=== PATIENT | female | born 1960 | race Hispanic/Latino ===

== ENCOUNTER 2021-08-19 12:35 | Observation (INO) | payer MEDICARE ==
[2021-08-19] MEDS ORDERED: ALBUTEROL 2.5 MG/3 ML NEBU IH ONE ×2 (14:06→22:39)
--- NOTE | 2021-08-19 14:09 | Event Note ---
ED Screening Note ED Screening Note: 60 y/o female with PMH of COPD c/o 5-6 day history of worsening sob and cough and now has stabbing pain radiating across her chest and exertional dyspnea. Feels the same it has when she had pneumonia. PCP gave her an order for outpatient CXR on 08/16/2021 which presents to ED today for evaluation. This initial assessment/diagnostic orders/clinical plan/treatment(s) is/are subject to change based on patients health status, clinical progression and re- assessment by fellow clinical providers in the ED. Further treatment and workup at subsequent clinical providers discretion. Patient/guardian urged not to elope from the ED as their condition may be serious if not clinically assessed and managed. Initial orders include: labs cxr treatment
--- NOTE | 2021-08-19 19:17 | XRay Report ---
CHEST 2 VIEWS INDICATION / CLINICAL INFORMATION: Dyspnea. COMPARISON: None available. FINDINGS: SUPPORT DEVICES: None. HEART / MEDIASTINUM: No significant abnormality. LUNGS / PLEURA: No significant pulmonary or pleural abnormality. No pneumothorax. ADDITIONAL FINDINGS: No significant additional findings. IMPRESSION: 1. No acute findings. Signer Name: Hugo Sage DO Signed: 08/19/2021 7:13 PM Workstation Name: [id number]
[2021-08-19 19:25] LABS: Basophils # (Auto) 0.2 K/mm3 (0.0-0.1); Basophils % (Auto) 1.3 % (0.0-1.8); Eosinophils # (Auto) 0.4 K/mm3 (0.0-0.4); Eosinophils % (Auto) 3.5 % (0.0-4.3); Hematocrit 43.3 % (30.3-42.9); Hemoglobin 14.6 gm/dl (10.1-14.3); Lymphocytes # (Auto) 3.5 K/mm3 (1.2-5.4); Mean Corpuscular HGB Conc 34 % (30-34); Mean Corpuscular Volume 92 fl (79-97); Monocytes % (Auto) 7.9 % (0.0-7.3); Platelet Count 362 K/mm3 (140-440); Red Cell Distribution Width 14.3 % (13.2-15.2)
[2021-08-19 19:48] LABS: Alanine Aminotransferase 19 units/L (7-56); Blood Urea Nitrogen 12 mg/dL (7-17); Calcium 10.3 mg/dL (8.4-10.2); Hemolysis Index 8
[2021-08-19 19:51] LABS: BUN/Creatinine Ratio 20
[2021-08-19] MEDS ORDERED: ONDANSETRON 4 MG/2 ML INJ IV ONE (22:39)
[2021-08-19] MEDS ORDERED: IPRATROPIUM 0.02% NEBU 2.5 ML IH ONE (22:39)
[2021-08-19] MEDS ORDERED: fentaNYL 100 MCG/2 ML INJ IV ONE (22:39)
--- NOTE | 2021-08-19 22:43 | Emergency Department Report ---
HPI - General Chief Complaint: Dyspnea/Respdistress Time Seen by Provider: 08/19/21 22:31 - HPI HPI: Room 40 The patient is a 60-year-old female present with a chief complaint of shortness of breath. Patient states she has a history of COPD and is not on home O2. Patient states over the past 2 months she has had shortness of breath pretty much every day. The patient states that shortness of breath worsened over the past few days and she developed stabbing pleuritic pain in her left upper back. Patient states her cough recently became productive of green sputum. Patient denies history of fever nausea or vomiting. Patient states she has not been vaccinated against COVID. Patient currently gives her pain a score of 10/10 ED Past Medical Hx - Past Medical History Hx COPD: Yes (No home O2) - Surgical History Past Surgical History?: No - Family History Family history: no significant - Social History Smoking Status: Current Every Day Smoker (1/2 pack/day) Substance Use Type: None (Denies illicit drug use) ED Review of Systems ROS: Stated complaint: TROUBLE BREATHING Other details as noted in HPI Constitutional: denies: fever Eyes: denies: eye pain ENT: denies: throat pain Respiratory: cough, shortness of breath Cardiovascular: denies: chest pain Endocrine: no symptoms reported Gastrointestinal: denies: nausea, vomiting Genitourinary: denies: dysuria Musculoskeletal: back pain Neurological: denies: headache Physical Exam - Physical Exam Vital Signs: Vital Signs 08/19/21 08/19/21 12:41 14:22 Temperature 98.5 F Pulse Rate 106 H Pulse Rate [ 108 H Anterior Bilateral Throughout] Respiratory 20 Rate Respiratory 20 Rate [Anterior Bilateral Throughout] Blood Pressure 170/91 O2 Sat by Pulse 93 Oximetry Physical Exam: GENERAL: The patient is well-developed well-nourished female lying on stretcher exhibiting increased work of breathing. [] HEENT: Normocephalic. Atraumatic. Extraocular motions are intact. Patient has moist mucous membranes. NECK: Supple. Trachea midline CHEST/LUNGS: Diminished throughout. Increased work of breathing. Accessory muscle use HEART/CARDIOVASCULAR: Regular. There is tachycardia. There is no gallop rub or murmur. ABDOMEN: Abdomen is soft, nontender. Patient has normal bowel sounds. There is no abdominal distention. SKIN: There is no rash. There is no diaphoresis. NEURO: The patient is awake, alert, and oriented. The patient is cooperative. The patient has no focal neurologic deficits. The patient has normal speech. GCS 15 MUSCULOSKELETAL:There is no evidence of acute injury. ED Course Vital Signs 08/19/21 08/19/21 12:41 14:22 Temperature 98.5 F Pulse Rate 106 H Pulse Rate [ 108 H Anterior Bilateral Throughout] Respiratory 20 Rate Respiratory 20 Rate [Anterior Bilateral Throughout] Blood Pressure 170/91 O2 Sat by Pulse 93 Oximetry ED Medical Decision Making - Lab Data Result diagrams: 08/19/21 19:10 08/19/21 22:48 Laboratory Tests 08/19/21 08/19/21 08/19/21 19:10 19:10 22:48 WBC 12.6 H RBC 4.70 Hgb 14.6 H Hct 43.3 H MCV 92 MCH 31 MCHC 34 RDW 14.3 Plt Count 362 Lymph % (Auto) 28.0 [place] % (Auto) 7.9 H Eos % (Auto) 3.5 Baso % (Auto) 1.3 Lymph # (Auto) 3.5 [place] # (Auto) 1.0 H Eos # (Auto) 0.4 Baso # (Auto) 0.2 H Seg Neutrophils % 59.3 Seg Neutrophils # 7.5 D-Dimer 205.70 Sodium 132 L Potassium 5.4 H Chloride 94.9 L Carbon Dioxide 27 Anion Gap 16 BUN 12 Creatinine 0.6 Estimated GFR > 60 BUN/Creatinine Ratio 20 Glucose 97 Calcium 10.3 H Total Bilirubin 0.30 AST 34 ALT 19 Alkaline Phosphatase 107 Troponin T < 0.010 Total Protein 7.7 Albumin 4.0 Albumin/Globulin Ratio 1.1 08/19/21 22:48 WBC RBC Hgb Hct MCV MCH MCHC RDW Plt Count Lymph % (Auto) [place] % (Auto) Eos % (Auto) Baso % (Auto) Lymph # (Auto) [place] # (Auto) Eos # (Auto) Baso # (Auto) Seg Neutrophils % Seg Neutrophils # D-Dimer Sodium Potassium 5.7 H Chloride Carbon Dioxide Anion Gap BUN Creatinine Estimated GFR BUN/Creatinine Ratio Glucose Calcium Total Bilirubin AST ALT Alkaline Phosphatase Troponin T Total Protein Albumin Albumin/Globulin Ratio Discussed with lab there is no hemolysis response for the potassium results - Radiology Data Radiology results: report reviewed (Chest x-ray), image reviewed (Chest x-ray) interpreted by me: Chest x-ray-no definite focal infiltrates, no pneumothorax [facility] [address] [place] [address] XRay Report Signed Patient: AMBER CHENG MR#: [id number] : 1960 Acct:[id number] Age/Sex: 60 / F ADM Date: 08/19/21 Loc: ED Attending Dr: Ordering Physician: GAIL FRIEND Date of Service: 08/19/21 Procedure(s): XR chest routine 2V Accession Number(s): [id number] cc: GAIL FRIEND Fluoro Time In Minutes: CHEST 2 VIEWS INDICATION / CLINICAL INFORMATION: Dyspnea. COMPARISON: None available. FINDINGS: SUPPORT DEVICES: None. HEART / MEDIASTINUM: No significant abnormality. LUNGS / PLEURA: No significant pulmonary or pleural abnormality. No pneumothorax. ADDITIONAL FINDINGS: No significant additional findings. IMPRESSION: 1. No acute findings. Signer Name: Hugo Briscoe DO Signed: 08/19/2021 7:13 PM Workstation Name: [id number] Transcribed By: DM Dictated By: HUGO BRISCOE DO Electronically Authenticated By: HUGO BRISCOE DO Signed Date/Time: 08/19/211912 DD/ 11 TD/TT: Print Cancel - Differential Diagnosis Pneumonia, COPD exacerbation, PE Critical care attestation.: If time is entered above; I have spent that time in minutes in the direct care of this critically ill patient, excluding procedure time. ED Disposition Clinical Impression: COPD exacerbation, Hyperkalemia Disposition: ADMITTED INPATIENT Is pt being admited?: Yes Does the pt Need Aspirin: No Condition: Fair Instructions: Chronic Obstructive Pulmonary Disease (ED) Time of Disposition: 23:51 (Care transferred to hospitalist (Dr. Anderson))
[2021-08-19] MEDS ORDERED: methylPREDNISolone Sod Succinate 125 MG/2 ML INJ IV ONE (23:37)
[2021-08-19] MEDS ORDERED: SODIUM POLYSTYRENE 15 GM/60 ML ORAL LIQD PO ONE (23:45)
[2021-08-20] MEDS ORDERED: ONDANSETRON 4 MG/2 ML INJ IV PRN (01:36)
[2021-08-20] MEDS ORDERED: MORPHINE 2 MG/1 ML INJ IV PRN (01:36)
[2021-08-20] MEDS ORDERED: ALBUTEROL 2.5 MG/3 ML NEBU IH PRN (01:36)
[2021-08-20] MEDS ORDERED: ACETAMINOPHEN 325 MG TAB PO PRN (01:36)
[2021-08-20] MEDS ORDERED: SODIUM POLYSTYRENE 15 GM/60 ML ORAL LIQD PO ONE ×2 (01:40→09:31)
--- NOTE | 2021-08-20 01:45 | History and Physical Report ---
History of Present Illness Date of examination: 08/20/21 Date of admission: 08/20/21 Chief complaint: Shortness of breath History of present illness: 60-year-old female present with history of COPD and is not on home O2 was brought to the emergency room because of progressive shortness of breath. Patient states over the past 2 months she has had shortness of breath pretty much every day. The patient states that shortness of breath worsened over the past few days and she developed stabbing pleuritic pain in her left upper back. Patient states her cough recently became productive of green sputum. Patient denies history of fever nausea or vomiting. Patient states she has not been vaccinated against COVID. Patient currently gives her pain a score of 10/10 In the emergency room patient is found to have acute COPD exacerbation. Also patient potassium is 5.4.'s were going to admit the patient we will put the patient on neb treatment and steroid and Kayexalate Past History Past Medical History: COPD Past Surgical History: No surgical history Social history: smoking Medications and Allergies Allergies Allergy/AdvReac Type Severity Reaction Status Date / Time No Known Allergies Allergy Unverified 08/19/21 12:45 Active Meds: Active Medications Acetaminophen (Acetaminophen 325 Mg Tab) 650 mg PO Q4H PRN PRN Reason: Pain MILD(1-3)/Fever >100.5/DELACRUZ Albuterol (Albuterol 2.5 Mg/3 Ml Nebu) 2.5 mg IH Q3HRT PRN PRN Reason: Shortness Of Breath Albuterol/Ipratropium (Ipratropium/Albuterol Sulfate 3 Ml Ampul.Neb) 1 ampul IH Q6HRT LALO Famotidine (Famotidine 20 Mg Tab) 20 mg PO BID LALO Heparin Sodium (Porcine) (Heparin 5,000 Unit/1 Ml Vial) 5,000 unit SUB-Q Q12HR LALO Calcium Gluconate 1,000 mg/ (Sodium Chloride) 110 mls @ 660 mls/hr IV ONCE ONE Stop: 08/20/21 01:48 Morphine Sulfate (Morphine 2 Mg/1 Ml Inj) 2 mg IV Q4H PRN PRN Reason: Pain, Moderate (4-6) Morphine Sulfate (Morphine 4 Mg/1 Ml Inj) 4 mg IV Q4H PRN PRN Reason: Pain , Severe (7-10) Ondansetron HCl (Ondansetron 4 Mg/2 Ml Inj) 4 mg IV Q8H PRN PRN Reason: Nausea And Vomiting Sodium Chloride (Sodium Chloride 0.9% 10 Ml Flush Syringe) 10 ml IV BID LALO Sodium Chloride (Sodium Chloride 0.9% 10 Ml Flush Syringe) 10 ml IV PRN PRN PRN Reason: LINE FLUSH Sodium Polystyrene Sulfonate (Sodium Polystyrene 15 Gm/60 Ml Oral Liqd) 60 gm PO ONCE ONE Stop: 08/20/21 01:41 Review of Systems All systems: negative Cardiovascular: chest pain, shortness of breath, dyspnea on exertion Respiratory: cough, shortness of breath, dyspnea on exertion Exam - Constitutional Vitals: Temp Pulse Resp BP Pulse Ox 98.5 F 97 H 32 H 133/59 93 08/19/21 12:41 08/19/21 23:30 08/19/21 23:30 08/19/21 23:30 08/19/21 12:41 General appearance: Present: no acute distress, well-nourished - EENT Eyes: Present: PERRL ENT: hearing intact, clear oral mucosa - Neck Neck: Present: supple, normal ROM - Respiratory Respiratory effort: normal Respiratory: bilateral: diminished - Cardiovascular Heart Sounds: Present: S1 & S2. Absent: rub, click - Extremities Extremities: pulses symmetrical, No edema Peripheral Pulses: within normal limits - Abdominal General gastrointestinal: Present: soft, non-tender, non-distended, normal bowel sounds Female genitourinary: Present: normal - Integumentary Integumentary: Present: clear, warm, dry - Musculoskeletal Musculoskeletal: gait normal, strength equal bilaterally - Psychiatric Psychiatric: appropriate mood/affect, intact judgment & insight - Neurologic Neurologic: CNII-XII intact, moves all extremities HEART Score - HEART Score Troponin: Troponin T < 0.010 ng/mL (0.00-0.029) 08/19/21 19:10 Results - Labs CBC & Chem 7: 08/19/21 19:10 08/19/21 22:48 Labs: Laboratory Last Values WBC 12.6 K/mm3 (4.5-11.0) H 08/19/21 19:10 RBC 4.70 M/mm3 (3.65-5.03) 08/19/21 19:10 Hgb 14.6 gm/dl (10.1-14.3) H 08/19/21 19:10 Hct 43.3 % (30.3-42.9) H 08/19/21 19:10 MCV 92 fl (79-97) 08/19/21 19:10 MCH 31 pg (28-32) 08/19/21 19:10 MCHC 34 % (30-34) 08/19/21 19:10 RDW 14.3 % (13.2-15.2) 08/19/21 19:10 Plt Count 362 K/mm3 (140-440) 08/19/21 19:10 Lymph % (Auto) 28.0 % (13.4-35.0) 08/19/21 19:10 [place] % (Auto) 7.9 % (0.0-7.3) H 08/19/21 19:10 Eos % (Auto) 3.5 % (0.0-4.3) 08/19/21 19:10 Baso % (Auto) 1.3 % (0.0-1.8) 08/19/21 19:10 Lymph # (Auto) 3.5 K/mm3 (1.2-5.4) 08/19/21 19:10 [place] # (Auto) 1.0 K/mm3 (0.0-0.8) H 08/19/21 19:10 Eos # (Auto) 0.4 K/mm3 (0.0-0.4) 08/19/21 19:10 Baso # (Auto) 0.2 K/mm3 (0.0-0.1) H 08/19/21 19:10 Seg Neutrophils % 59.3 % (40.0-70.0) 08/19/21 19:10 Seg Neutrophils # 7.5 K/mm3 (1.8-7.7) 08/19/21 19:10 D-Dimer 205.70 ng/mlDDU (0-234) 08/19/21 22:48 Sodium 132 mmol/L (137-145) L 08/19/21 19:10 Potassium 5.7 mmol/L (3.6-5.0) H 08/19/21 22:48 Chloride 94.9 mmol/L (98-107) L 08/19/21 19:10 Carbon Dioxide 27 mmol/L (22-30) 08/19/21 19:10 Anion Gap 16 mmol/L 08/19/21 19:10 BUN 12 mg/dL (7-17) 08/19/21 19:10 Creatinine 0.6 mg/dL (0.6-1.2) 08/19/21 19:10 Estimated GFR > 60 ml/min 08/19/21 19:10 BUN/Creatinine Ratio 20 % 08/19/21 19:10 Glucose 97 mg/dL (65-100) 08/19/21 19:10 Calcium 10.3 mg/dL (8.4-10.2) H 08/19/21 19:10 Total Bilirubin 0.30 mg/dL (0.1-1.2) 08/19/21 19:10 AST 34 units/L (5-40) 08/19/21 19:10 ALT 19 units/L (7-56) 08/19/21 19:10 Alkaline Phosphatase 107 units/L (35-129) 08/19/21 19:10 Troponin T < 0.010 ng/mL (0.00-0.029) 08/19/21 19:10 Total Protein 7.7 g/dL (6.3-8.2) 08/19/21 19:10 Albumin 4.0 g/dL (3.9-5) 08/19/21 19:10 Albumin/Globulin Ratio 1.1 % 08/19/21 19:10 - Imaging and Cardiology Chest x-ray: report reviewed Assessment and Plan VTE prophylaxis?: Chemical Plan of care discussed with patient/family: Yes - Patient Problems (1) Acute exacerbation of chronic obstructive pulmonary disease (COPD) Status: Acute Plan to address problem: Admit the patient to the medical telemetry. Oxygen via nasal cannula 3 L/min. DuoNeb by nebulizer every 4 hours. Albuterol via nebulizer every 4 hours as needed. Solu-Medrol 40 mg IV every 8 hours. Consult (2) Tobacco abuse Status: Acute Plan to address problem: We counseled the patient regarding quit smoking. We put the patient on nicotine patch (3) Hyperkalemia Status: Acute Plan to address problem: Kayexalate 60 mg p.o. x1 dose. Calcium gluconate 1 g IV x1 dose. We will monitor the potassium closely. Repeat BMP in the morning. (4) DVT prophylaxis Status: Acute Plan to address problem: Heparin 5000 units subcu every 12 hours for DVT prophylaxis. Pepcid 20 mg p.o. twice daily for GI prophylaxis. Patient is a full code
[2021-08-20] MEDS ORDERED: NICOTINE 14 MG/24 HR PATCH TD ONE (01:46)
[2021-08-20] MEDS ORDERED: CALC GLUCONATE 1GM/NS 100 ML 1 GM/100 ML BAG IV ONE (02:00)
[2021-08-20] MEDS: MORPHINE 4 MG/1 ML INJ IV PRN ×3 (02:30→12:07)
[2021-08-20] MEDS: IPRATROPIUM/ALBUTEROL SULFATE 3 ML AMPUL.NEB IH SCH ×3 (02:42→15:33)
[2021-08-20] MEDS ORDERED: diphenhydrAMINE 50 MG/ML VIAL IV ONE ×2 (03:39→06:35)
[2021-08-20] MEDS ORDERED: methylPREDNISolone Sod Succinate 40 MG/1 ML INJ IV SCH (06:00)
[2021-08-20] MEDS ORDERED: INSULIN REGULAR, HUMAN 100 UNITS/1 ML IV ONE (09:31)
[2021-08-20] MEDS ORDERED: DEXTROSE 50% IN WATER (25GM) 50 ML SYRINGE IV ONE (09:31)
[2021-08-20] MEDS ORDERED: predniSONE 20 MG TAB PO SCH (10:00)
[2021-08-20] MEDS ORDERED: HEPARIN 5,000 UNIT/1 ML VIAL SUB-Q SCH (10:00)
[2021-08-20] MEDS ORDERED: FAMOTIDINE 20 MG TAB PO SCH (10:00)
[2021-08-20 13:06] LABS: Blood Urea Nitrogen 13 mg/dL (7-17); Calcium 9.2 mg/dL (8.4-10.2); Hemolysis Index 4
[2021-08-20 13:11] LABS: BUN/Creatinine Ratio 22
[2021-08-20 13:14] LABS: Hematocrit 42.2 % (30.3-42.9); Hemoglobin 13.8 gm/dl (10.1-14.3); Mean Corpuscular HGB Conc 33 % (30-34); Mean Corpuscular Volume 93 fl (79-97); Platelet Count 345 K/mm3 (140-440); Red Blood Count 4.51 M/mm3 (3.65-5.03); Red Cell Distribution Width 14.6 % (13.2-15.2)
--- NOTE | 2021-08-20 13:21 | Discharge Summary ---
Providers - Providers Date of Admission: 08/20/21 01:36 Date of discharge: 08/20/21 Attending physician: JENNIE TRUJILLO MD Primary care physician: JALLI BARR Hospitalization Reason for admission: COPD exacerbation, hyperkalemia Condition: Fair Pertinent studies: Reviewed. Procedures: None. Hospital course: Patient is a 60-year-old female past medical history of COPD (not on home oxygen), tobacco dependence, and chronic pain who presented to the emergency department with complaints of progressive shortness of breath that had been going on for the previous 2 months. Patient over the most recent 3 days described stabbing, pleuritic pain in her left upper back. She also endorsed productive green sputum. Patient denied any history of nausea, vomiting, fever, sick contacts, immobility, surgery, hormonal therapy. Patient also endorses not being vaccinated for COVID-19. In the ED, the patient was found to be mildly tachycardic with a heart rate of 110. Patient had a chest x-ray that was found to be unremarkable. Lab work was remarkable for potassium of 5.4 that later increased to 5.7, unremarkable D-dimer, negative troponin. Patient was admitted for possible COPD exacerbation in addition to hyperkalemia. Patient underwent medical management of hyperkalemia with Kayexalate, IV insulin, and D50 with resolution of hyperkalemia. Patient was counseled about the importance of smoking cessation given her current diagnosis of COPD; the patient endorses actively working towards smoking cessation. The patient's back pain was found to be musculoskeletal on physical exam, and it was recommended to her that she use Epson salts baths and massage therapy for resolution of symptoms. Patient expressed understanding. Patient is medically clear for discharge. Disposition: 01 HOME / SELF CARE / HOMELESS Final Discharge Diagnosis (Prints w/discharge instructions): COPD exacerbation, hyperkalemia, hypercalcemia, and hyponatremia, tobacco dependence. Time spent for discharge: 45 min Core Measure Documentation - Palliative Care Palliative Care/ Comfort Measures: Not Applicable - Core Measures Any of the following diagnoses?: none Exam - Constitutional Vitals: Temp Pulse Resp BP Pulse Ox 98.5 F 109 H 20 137/65 93 08/19/21 12:41 08/20/21 07:36 08/20/21 07:36 08/20/21 03:30 08/19/21 12:41 General appearance: Present: no acute distress, cachectic - EENT Eyes: Present: PERRL, EOM intact ENT: hearing intact, clear oral mucosa, poor dentition - Neck Neck: Present: supple, normal ROM - Respiratory Respiratory effort: normal Respiratory: bilateral: CTA - Cardiovascular Rhythm: regular Heart Sounds: Present: S1 & S2 - Extremities Extremities: no ischemia, pulses intact, pulses symmetrical, No edema, normal temperature, normal color, Full ROM Peripheral Pulses: within normal limits - Abdominal General gastrointestinal: Present: soft, non-tender, non-distended, normal bowel sounds Female genitourinary: Present: deferred - Rectal Rectal Exam: deferred - Integumentary Integumentary: Present: clear, warm, dry - Musculoskeletal Musculoskeletal: generalized weakness - Psychiatric Psychiatric: appropriate mood/affect, intact judgment & insight, memory intact, cooperative - Neurologic Neurologic: CNII-XII intact, moves all extremities - Allied Health Allied health notes reviewed: nursing Plan Activity: advance as tolerated Diet: regular Special Instructions: smoking cessation Additional Instructions: Patient is a 60-year-old female past medical history of COPD (not on home oxygen), tobacco dependence, and chronic pain who presented to the emergency department with complaints of progressive shortness of breath that had been going on for the previous 2 months. Patient over the most recent 3 days described stabbing, pleuritic pain in her left upper back. She also endorsed productive green sputum. Patient denied any history of nausea, vomiting, fever, sick contacts, immobility, surgery, hormonal therapy. Patient also endorses not being vaccinated for COVID-19. In the ED, the patient was found to be mildly tachycardic with a heart rate of 110. Patient had a chest x- ray that was found to be unremarkable. Lab work was remarkable for potassium of 5.4 that later increased to 5.7, unremarkable D-dimer, negative troponin. Patient was admitted for possible COPD exacerbation in addition to hyperkalemia. Patient underwent medical management of hyperkalemia with Kayexalate, IV insulin, and D50 with resolution of hyperkalemia. Patient was counseled about the importance of smoking cessation given her current diagnosis of COPD; the patient endorses actively working towards smoking cessation. The patient's back pain was found to be musculoskeletal on physical exam, and it was recommended to her that she use Epson salts baths and massage therapy for resolution of symptoms. Patient expressed understanding. Patient is medically clear for discharge. Care Plan Goals: Patient is medically clear for discharge. Assessment: Patient is a 60-year-old female past medical history of COPD (not on home oxygen), tobacco dependence, and chronic pain who presented to the emergency department with complaints of progressive shortness of breath that had been going on for the previous 2 months. Patient over the most recent 3 days described stabbing, pleuritic pain in her left upper back. She also endorsed productive green sputum. Patient denied any history of nausea, vomiting, fever, sick contacts, immobility, surgery, hormonal therapy. Patient also endorses not being vaccinated for COVID-19. In the ED, the patient was found to be mildly tachycardic with a heart rate of 110. Patient had a chest x-ray that was found to be unremarkable. Lab work was remarkable for potassium of 5.4 that later increased to 5.7, unremarkable D-dimer, negative troponin. Patient was admitted for possible COPD exacerbation in addition to hyperkalemia. Patient underwent medical management of hyperkalemia with Kayexalate, IV insulin, and D50 with resolution of hyperkalemia. Patient was counseled about the importance of smoking cessation given her current diagnosis of COPD; the patient endorses actively working towards smoking cessation. The patient's back pain was found to be musculoskeletal on physical exam, and it was recommended to her that she use Epson salts baths and massage therapy for resolution of symptoms. Patient expressed understanding. Patient is medically clear for discharge. Follow up with: JALIL BARR MD [Primary Care Provider] - 7 Days Prescriptions: predniSONE [Deltasone] 40 mg PO QDAY #8 tablet
[2021-08-20 14:22] VITALS: BP 110/64
== END 2021-08-20 15:42 | disposition home or self-care (01) ==
LOC: EDBD → ED 12:35 → 4A 08-20 01:36 → INTOOBSV 08-20 01:36
PROVIDERS: ADMIT Hospitalist; ATTEND Student in an Organized Health Care Education/Training Program
DX: J44.1 Chronic obstructive pulmonary disease with (acute) exacerbation (principal); E87.5 Hyperkalemia; F17.210 Nicotine dependence, cigarettes, uncomplicated
CPT/HCPCS: 36415; 71046; 80048; 80053; 84132; 84484; 85025; 85027; 85379; 94640; 94644; 96372; 96374; 96375; 96376; 99284; G0378; J0610; J1200; J1644; J2270; J2405; J2920; J2930; J3010